=== PATIENT | female | born 2000 | race African-American/Black ===

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

== ENCOUNTER 2021-01-11 18:45 | Emergency (ER) | payer OTHER ==
[~2021-01-11] VITALS: Ht 172.7 cm; Wt 94.1 kg
[~2021-01-11 18:45] MED LIST changes: +AMOXICILLIN 50500 MG PO; +PHENERGAN 25 TA25 MG PO
[2021-01-11 18:50] VITALS: TEMP 103.2
[2021-01-11 19:50] VITALS: BP 136/74; PULSE 110
== END 2021-01-11 19:50 | disposition home or self-care (01) ==
LOC: COL.ER 18:45
DX: U07.1 COVID-19 (principal)